=== PATIENT | male | born 1970 | race Two or more races ===

== ENCOUNTER 2023-10-01 09:04 | Inpatient (IN) | payer MEDICAID ==
[2023-10-01] VITALS (36 sets, daily range): BP systolic 105–153; BP diastolic 69–109; TEMP 98.2–98.7; O2SAT 96–100
[2023-10-01] MEDS ORDERED: MAG HYDROX/AL HYDROX/SIMETH 30 ML UDC PO PRN (09:30)
[2023-10-01] MEDS ORDERED: ACETAMINOPHEN 325 MG TABLET PO PRN (09:30)
[2023-10-01] MEDS ORDERED: MAGNESIUM HYDROXIDE 30 ML UDC PO PRN (09:30)
[2023-10-01] MEDS ORDERED: ONDANSETRON HCL/PF 4 MG/2 ML VIAL IVP PRN (09:30)
[2023-10-01] MEDS ORDERED: Z GUARD REMEDY 4 OZ OINT TP PRN (09:30)
[2023-10-01] MEDS ORDERED: ASPI-1169 PO (09:41)
[2023-10-01] MEDS ORDERED: ATOR40TA PO (09:41)
[2023-10-01] MEDS ORDERED: INSU100V27 SQ (09:41)
[2023-10-01] MEDS ORDERED: AZIT500T PO (09:41)
[2023-10-01] MEDS ORDERED: INSU100V39 SQ (09:41)
[2023-10-01] MEDS ORDERED: ETHA400T8 PO (09:41)
[2023-10-01] MEDS ORDERED: RIFA300C4 PO (09:41)
[2023-10-01] MEDS ORDERED: DEXTROSE 50%-WATER 50 ML DISP.SYRIN IV PRN (10:00)
[2023-10-01] MEDS: HYDROMORPHONE INJ 2 MG/ML DISP.SYRIN IV PRN ×2 (10:06→16:04)
[2023-10-01] MEDS: *INSULIN REGULAR(HUMULIN R)HUM 100 UNIT/ML VIAL SQ PRN (12:02)
[2023-10-01] MEDS: BLOOD SUGAR DIAGNOSTIC 1 EACH STRIP VI SCH ×3 (12:11→21:44)
[2023-10-01] MEDS: INSULIN REGULAR, HUMAN 100 UNIT/ML 3 ML VIAL SQ PRN ×2 (17:02→21:53)
[2023-10-01] MEDS: diphenhydrAMINE HCL 50 MG/ML VIAL IV PRN (21:44)
[2023-10-02] VITALS (23 sets, daily range): BP systolic 110–148; BP diastolic 57–98; TEMP 96.6–99; O2SAT 96–100
[2023-10-02] MEDS: HYDROMORPHONE INJ 2 MG/ML DISP.SYRIN IV PRN (04:14)
[2023-10-02 04:15] LABS: BASOPHILS # (AUTO) 0.1 K/uL (0.0-0.2); BASOPHILS % (AUTO) 0.6 % (0.0-2.0); EOSINOPHILS # (AUTO) 0.5 K/uL (0.0-0.7); EOSINOPHILS % (AUTO) 5.7 % (0.0-6.0); HEMATOCRIT 34 % (39-51); HEMOGLOBIN 11.7 g/dL (13.5-17.5); LYMPHOCYTES % (AUTO) 24.3 % (20.0-44.0); MEAN CORPUSCULAR HEMOGLOBIN 30 PG (26.0-33.0); MEAN CORPUSCULAR HGB CONC 34 g/dl (31.0-36.0); MEAN CORPUSCULAR VOLUME 87 fL (80-96); MONOCYTES # (AUTO) 0.7 K/uL (0.1-1.30); MONOCYTES % (AUTO) 8.6 % (2.0-12.0); NEUTROPHILS % (AUTO) 60.8 % (43.0-81.0); PLATELET COUNT (AUTO) 337 K/uL (150-450); RED BLOOD CELL COUNT(AUTO) 3.96 MIL/uL (4.5-6.0); RED CELL DISTRIBUTION WIDTH 15.7 % (11.5-15.0); WHITE BLOOD COUNT (AUTO) 8.3 K/uL (4.3-11.0)
[2023-10-02 05:02] LABS: CALCIUM, SERUM 9.6 mg/dL (8.5-10.1); CREATININE 0.5 mg/dL (0.6-1.3); PHOSPHORUS 3.5 mg/dL (2.5-4.9)
[2023-10-02] MEDS: diphenhydrAMINE HCL 50 MG/ML VIAL IV PRN ×2 (05:21→11:02)
[2023-10-02] MEDS: BLOOD SUGAR DIAGNOSTIC 1 EACH STRIP VI SCH ×4 (07:20→22:12)
[2023-10-02] MEDS: INSULIN REGULAR, HUMAN 100 UNIT/ML 3 ML VIAL SQ PRN (11:02)
[2023-10-02] MEDS: *INSULIN REGULAR(HUMULIN R)HUM 100 UNIT/ML VIAL SQ PRN ×2 (17:24→22:11)
[2023-10-02] MEDS: ZOLPIDEM TARTRATE 5 MG TABLET PO PRN (22:20)
[2023-10-03] VITALS: BP_SYST 120; BP_SYST 123; BP_DIAS 76; BP_DIAS 79; TEMP 97.7; TEMP 98.1; O2SAT 97
[2023-10-03 06:08] LABS: BASOPHILS # (AUTO) 0.1 K/uL (0.0-0.2); BASOPHILS % (AUTO) 0.8 % (0.0-2.0); EOSINOPHILS # (AUTO) 0.6 K/uL (0.0-0.7); HEMATOCRIT 36 % (39-51); HEMOGLOBIN 11.7 g/dL (13.5-17.5); LYMPHOCYTES % (AUTO) 25.2 % (20.0-44.0); MEAN CORPUSCULAR HEMOGLOBIN 29 PG (26.0-33.0); MEAN CORPUSCULAR HGB CONC 33 g/dl (31.0-36.0); MEAN CORPUSCULAR VOLUME 88 fL (80-96); MONOCYTES # (AUTO) 0.7 K/uL (0.1-1.30); NEUTROPHILS # (AUTO) 4.4 K/uL (1.8-8.9); PLATELET COUNT (AUTO) 344 K/uL (150-450); RED CELL DISTRIBUTION WIDTH 15.8 % (11.5-15.0); WHITE BLOOD COUNT (AUTO) 7.8 K/uL (4.3-11.0)
[2023-10-03 06:20] LABS: CALCIUM, SERUM 9.3 mg/dL (8.5-10.1); CREATININE 0.5 mg/dL (0.6-1.3); POTASSIUM 3.9 mmol/L (3.5-5.1)
[2023-10-03] MEDS: BLOOD SUGAR DIAGNOSTIC 1 EACH STRIP VI SCH ×4 (07:47→21:57)
[2023-10-03] MEDS ORDERED: ETHAMBUTOL HCL (400 MG) 400 MG TABLET PO SCH (09:00)
[2023-10-03] MEDS ORDERED: RIFAMPIN 300 MG CAPSULE PO SCH (09:00)
[2023-10-03] MEDS: AZITHROMYCIN 250 MG TABLET PO SCH (09:20)
[2023-10-03] MEDS: ETHAMBUTOL HCL (400 MG) 400 MG TABLET PO SCH (09:20)
[2023-10-03] MEDS: RIFAMPIN 300 MG CAPSULE PO SCH (09:20)
[2023-10-03] MEDS: INSULIN REGULAR, HUMAN 100 UNIT/ML 3 ML VIAL SQ PRN (11:37)
[2023-10-03] MEDS: ZOLPIDEM TARTRATE 5 MG TABLET PO PRN (21:33)
[2023-10-03] MEDS: *INSULIN REGULAR(HUMULIN R)HUM 100 UNIT/ML VIAL SQ PRN (21:55)
[2023-10-04] MEDS: BLOOD SUGAR DIAGNOSTIC 1 EACH STRIP VI SCH ×4 (08:00→21:28)
[2023-10-04] MEDS: AZITHROMYCIN 250 MG TABLET PO SCH (08:36)
[2023-10-04] MEDS: ETHAMBUTOL HCL (400 MG) 400 MG TABLET PO SCH (08:36)
[2023-10-04] MEDS: RIFAMPIN 300 MG CAPSULE PO SCH (08:36)
[2023-10-04] MEDS: *INSULIN REGULAR(HUMULIN R)HUM 100 UNIT/ML VIAL SQ PRN ×2 (12:16→21:31)
[2023-10-04 20:00] VITALS: BP 123/77; TEMP 98.4; O2SAT 99
[2023-10-05] VITALS: BP 113/75; TEMP 98.4; O2SAT 100
[2023-10-05 04:00] VITALS: BP 123/79; TEMP 98.4; O2SAT 100
[2023-10-05 06:18] LABS: BASOPHILS % (AUTO) 0.7 % (0.0-2.0); EOSINOPHILS # (AUTO) 0.5 K/uL (0.0-0.7); EOSINOPHILS % (AUTO) 7.4 % (0.0-6.0); HEMATOCRIT 35 % (39-51); HEMOGLOBIN 11.9 g/dL (13.5-17.5); LYMPHOCYTES # (AUTO) 1.7 K/uL (0.8-4.8); LYMPHOCYTES % (AUTO) 25.9 % (20.0-44.0); MEAN CORPUSCULAR HEMOGLOBIN 29 PG (26.0-33.0); MEAN CORPUSCULAR HGB CONC 34 g/dl (31.0-36.0); MEAN CORPUSCULAR VOLUME 87 fL (80-96); MONOCYTES # (AUTO) 0.6 K/uL (0.1-1.30); MONOCYTES % (AUTO) 8.8 % (2.0-12.0); NEUTROPHILS # (AUTO) 3.8 K/uL (1.8-8.9); NEUTROPHILS % (AUTO) 57.2 % (43.0-81.0); PLATELET COUNT (AUTO) 349 K/uL (150-450); RED BLOOD CELL COUNT(AUTO) 4.09 MIL/uL (4.5-6.0); RED CELL DISTRIBUTION WIDTH 15.4 % (11.5-15.0); WHITE BLOOD COUNT (AUTO) 6.7 K/uL (4.3-11.0)
[2023-10-05 06:37] LABS: CALCIUM, SERUM 9.3 mg/dL (8.5-10.1); CREATININE 0.6 mg/dL (0.6-1.3); POTASSIUM 3.5 mmol/L (3.5-5.1)
[2023-10-05 08:00] VITALS: BP 114/78; TEMP 97.9; O2SAT 100
[2023-10-05] MEDS: *INSULIN REGULAR(HUMULIN R)HUM 100 UNIT/ML VIAL SQ PRN ×2 (08:20→12:45)
[2023-10-05] MEDS: ETHAMBUTOL HCL (400 MG) 400 MG TABLET PO SCH (08:21)
[2023-10-05] MEDS: AZITHROMYCIN 250 MG TABLET PO SCH (08:22)
[2023-10-05] MEDS: BLOOD SUGAR DIAGNOSTIC 1 EACH STRIP VI SCH ×4 (08:22→22:02)
[2023-10-05] MEDS: RIFAMPIN 300 MG CAPSULE PO SCH (08:22)
[2023-10-05 12:00] VITALS: BP 126/85; TEMP 97.7; O2SAT 100
[2023-10-05 16:00] VITALS: BP 122/79; TEMP 98.1; O2SAT 100
[2023-10-05] MEDS: MEGESTROL ACETATE 40 MG TABLET PO SCH (17:34)
[2023-10-05 20:00] VITALS: BP 120/73; TEMP 98.1; O2SAT 99
[2023-10-05] MEDS: INSULIN REGULAR, HUMAN 100 UNIT/ML 3 ML VIAL SQ PRN (22:00)
[2023-10-05] MEDS: ZOLPIDEM TARTRATE 5 MG TABLET PO PRN (22:06)
[2023-10-06] VITALS: BP 107/66; TEMP 97.8; O2SAT 99
[2023-10-06 04:00] VITALS: BP 107/69; TEMP 97.8; O2SAT 99
[2023-10-06] MEDS: HYDROMORPHONE INJ 2 MG/ML DISP.SYRIN IV PRN (05:47)
[2023-10-06 08:00] VITALS: BP 119/75; TEMP 97.7; O2SAT 100
[2023-10-06] MEDS: BLOOD SUGAR DIAGNOSTIC 1 EACH STRIP VI SCH ×4 (08:05→21:28)
[2023-10-06] MEDS ORDERED: HYDROCODONE/APAP 5/325MG TABLET PO PRN (08:30)
[2023-10-06] MEDS: AZITHROMYCIN 250 MG TABLET PO SCH (09:09)
[2023-10-06] MEDS: ETHAMBUTOL HCL (400 MG) 400 MG TABLET PO SCH (09:09)
[2023-10-06] MEDS: MEGESTROL ACETATE 40 MG TABLET PO SCH ×2 (09:09→17:01)
[2023-10-06] MEDS: RIFAMPIN 300 MG CAPSULE PO SCH (09:10)
[2023-10-06 12:00] VITALS: BP 127/80; TEMP 97.7; O2SAT 100
[2023-10-06] MEDS: INSULIN REGULAR, HUMAN 100 UNIT/ML 3 ML VIAL SQ PRN (12:49)
[2023-10-06 16:00] VITALS: BP 127/82; TEMP 97.7; O2SAT 100
[2023-10-06 20:00] VITALS: BP 125/73; TEMP 97.9; O2SAT 100
[2023-10-06] MEDS: *INSULIN REGULAR(HUMULIN R)HUM 100 UNIT/ML VIAL SQ PRN (21:37)
[2023-10-07] VITALS: BP 118/72; TEMP 98.4; O2SAT 100
[2023-10-07 04:00] VITALS: BP 108/70; TEMP 98.1; O2SAT 100
[2023-10-07 07:36] LABS: ALBUMIN 2.7 g/dL (3.4-5.0); BILIRUBIN,DIRECT 0.1 mg/dL (0.0-0.2); BILIRUBIN,TOTAL 0.2 mg/dL (0.2-1.0); TOTAL PROTEIN, SERUM 7.9 g/dL (6.4-8.2)
[2023-10-07 08:00] VITALS: BP 121/75; TEMP 98.2; O2SAT 100
[2023-10-07] MEDS: BLOOD SUGAR DIAGNOSTIC 1 EACH STRIP VI SCH ×2 (08:23→12:17)
[2023-10-07] MEDS: RIFAMPIN 300 MG CAPSULE PO SCH (08:31)
[2023-10-07] MEDS: MEGESTROL ACETATE 40 MG TABLET PO SCH (08:32)
[2023-10-07] MEDS: ETHAMBUTOL HCL (400 MG) 400 MG TABLET PO SCH (08:32)
[2023-10-07] MEDS: AZITHROMYCIN 250 MG TABLET PO SCH (08:32)
[2023-10-07 12:00] VITALS: BP 122/73; TEMP 98.2; O2SAT 100
[2023-10-07] MEDS: INSULIN REGULAR, HUMAN 100 UNIT/ML 3 ML VIAL SQ PRN (12:22)
== END 2023-10-07 15:35 | disposition home health service (06) | DRG 143 ==
LOC: ICU 09:06 → TELE-TD 10-02 14:46 → TELE1 10-03 14:49
PROVIDERS: ADMIT Internal Medicine; ATTEND Nurse Practitioner Acute Care
DX: J93.83 Other pneumothorax (principal); J96.21 Acute and chronic respiratory failure with hypoxia; Z99.81 Dependence on supplemental oxygen; E78.5 Hyperlipidemia, unspecified; J93.82 Other air leak; Z86.19 Personal history of other infectious and parasitic diseases; J62.8 Pneumoconiosis due to other dust containing silica
CPT/HCPCS: 36415; 71045-TC; 80048-TC; 80076-TC; 82962-TC; 83735-TC; 84100-TC; 85025-TC; 87081-TC; A4223; A6253; G0378; J1170; J1200; J1815; J7050